=== PATIENT | female | born 1980 | race Caucasian/White ===

== ENCOUNTER 2019-10-14 13:30 | Outpatient (REF) | payer SELFPAY ==
[2019-10-14 15:23] LABS: Cholesterol 180 mg/dL (0-200); Glucose 89 mg/dL (65-115); HDL Cholesterol 30 mg/dL (60-100); LDL Cholesterol Calculated 108 mg/dL (50-129); Triglycerides 209 mg/dL (0-150)
[2019-10-14 15:37] LABS: Estmated Average Glucose 114; Hemoglobin A1C 5.6 % (4.0-6.0)
== END 2019-10-14 13:31 | disposition home or self-care (01) ==
LOC: LAB 13:30
PROVIDERS: Family Provider Family Medicine; PCP Family Medicine
DX: Z01.89 Encounter for other specified special examinations (principal)
CPT/HCPCS: 80061; 82947; 83036